=== PATIENT | male | born 1980 | race Caucasian/White ===

== ENCOUNTER 2024-12-01 14:24 | Inpatient (IN) | payer OTHER ==
[~2024-12-01] VITALS: Ht 182.9 cm; Wt 87.8 kg
[2024-12-01] MEDS ORDERED: KETOROLAC TROMETHAMINE 15 MG/ML VIAL ONE (15:12)
[2024-12-01] MEDS ORDERED: LIDOCAINE 5% (PATCH) 1 EA PATCH TP ONE (15:12)
[2024-12-01] MEDS ORDERED: BACLOFEN (10 MG) 10 MG TABLET ONE (15:12)
[2024-12-01] MEDS: BACLOFEN (10 MG) 10 MG TABLET PO ONE (15:20)
[2024-12-01] MEDS: KETOROLAC TROMETHAMINE 15 MG/ML VIAL IM ONE (15:20)
[2024-12-01] MEDS: LIDOCAINE 5% (PATCH) 1 EA PATCH TP SCH (15:20)
[2024-12-01] MEDS ORDERED: HYDROCODONE/APAP 7.5/325MG 1 EACH TABLET PO ONE (17:00)
[2024-12-01] MEDS ORDERED: HYDROCODONE/APAP 5/325MG TABLET ONE (17:14)
[2024-12-01] MEDS: HYDROCODONE/APAP 5/325MG TABLET PO ONE (17:21)
[2024-12-01] MEDS ORDERED: METH4TAB3 PO (19:56)
[2024-12-01] MEDS ORDERED: LIDO1ADH71 TOP (19:56)
[2024-12-01] MEDS ORDERED: HYDR-4277 PO (19:56)
[2024-12-01] MEDS ORDERED: ACETAMINOPHEN 325 MG TABLET PO PRN (21:00)
[2024-12-01] MEDS ORDERED: ONDANSETRON HCL/PF 4 MG/2 ML VIAL IVP PRN (21:00)
[2024-12-01] MEDS ORDERED: MAG HYDROX/AL HYDROX/SIMETH 30 ML UDC PO PRN (21:00)
[2024-12-01] MEDS ORDERED: MAGNESIUM HYDROXIDE 30 ML UDC PO PRN (21:00)
[2024-12-01] MEDS ORDERED: HYDROCODONE/APAP 10/325MG TABLET ONE (22:10)
[2024-12-01] MEDS: HYDROCODONE/APAP 10/325MG TABLET PO PRN (22:10)
[2024-12-02] MEDS ORDERED: HYDROCODONE/APAP 10/325MG TABLET ONE (02:46)
[2024-12-02 06:31] LABS: BASOPHILS % (AUTO) 0.7 % (0.0-2.0); EOSINOPHILS # (AUTO) 0.2 K/uL (0.0-0.7); EOSINOPHILS % (AUTO) 3.6 % (0.0-6.0); HEMATOCRIT 40 % (39-51); HEMOGLOBIN 14.5 g/dL (13.5-17.5); LYMPHOCYTES # (AUTO) 1.8 K/uL (0.8-4.8); LYMPHOCYTES % (AUTO) 28.8 % (20.0-44.0); MEAN CORPUSCULAR HEMOGLOBIN 33 PG (26.0-33.0); MEAN CORPUSCULAR HGB CONC 36 g/dl (31.0-36.0); MEAN CORPUSCULAR VOLUME 92 fL (80-96); MONOCYTES # (AUTO) 0.7 K/uL (0.1-1.30); MONOCYTES % (AUTO) 10.2 % (2.0-12.0); NEUTROPHILS # (AUTO) 3.6 K/uL (1.8-8.9); NEUTROPHILS % (AUTO) 56.7 % (43.0-81.0); PLATELET COUNT (AUTO) 245 K/uL (150-450); RED BLOOD CELL COUNT(AUTO) 4.41 MIL/uL (4.5-6.0); RED CELL DISTRIBUTION WIDTH 12.9 % (11.5-15.0); WHITE BLOOD COUNT (AUTO) 6.4 K/uL (4.3-11.0)
[2024-12-02] MEDS ORDERED: KETOROLAC TROMETHAMINE 15 MG/ML VIAL ONE (06:42)
[2024-12-02] MEDS: KETOROLAC TROMETHAMINE 15 MG/ML VIAL IV ONE (06:44)
[2024-12-02 06:52] LABS: CREATININE 1.1 mg/dL (0.6-1.3); PHOSPHORUS 4.4 mg/dL (2.5-4.9)
[2024-12-02] MEDS ORDERED: MORPHINE SULFATE INJ 2 MG/ML DISP.SYRIN ONE ×2 (08:24→12:44)
[2024-12-02] MEDS: MORPHINE SULFATE INJ 2 MG/ML DISP.SYRIN IV PRN (08:32)
[2024-12-02] MEDS ORDERED: BACLOFEN (10 MG) 10 MG TABLET ONE (09:21)
[2024-12-02] MEDS: BACLOFEN (10 MG) 10 MG TABLET PO SCH (09:38)
[2024-12-02] MEDS ORDERED: BACL10TA PO (12:41)
[2024-12-02] MEDS ORDERED: HYDR-3980 PO ×3 (12:41→14:00)
[2024-12-02] MEDS ORDERED: LIDO30AD10 TP (12:41)
[2024-12-02 13:00] VITALS: O2SAT 99
[2024-12-02] MEDS: HYDROCODONE/APAP 10/325MG TABLET PO PRN (18:10)
[2024-12-03] MEDS: KETOROLAC TROMETHAMINE INJ 30 MG/ML VIAL IV ONE (04:47)
[2024-12-03 08:00] VITALS: BP 139/88; TEMP 98.2; O2SAT 99
== END 2024-12-03 12:30 | disposition home health service (06) | DRG 552 ==
LOC: ER 14:40 → MED 12-02 13:11
DX: M51.17 Intervertebral disc disorders with radiculopathy, lumbosacral region (principal); X50.0XXA Overexertion from strenuous movement or load, initial encounter; Y92.39 Other specified sports and athletic area as the place of occurrence of the external cause; Y93.B3 Activity, free weights
CPT/HCPCS: 36415; 72131-TC; 72148-TC; 80048-TC; 83735-TC; 84100-TC; 85025-TC; 97116-TC; 97530-TC; G0378; J1885; J2270